=== PATIENT | female | born 1985 | race African-American/Black ===

== ENCOUNTER 2017-02-11 12:22 | Emergency (ER) | payer SELFPAY ==
[2017-02-11] MEDS ORDERED: Acetaminophen 500 MG TAB ONE (13:07)
[2017-02-11] MEDS ORDERED: Ketorolac Tromethamine 60 MG/2 ML VIAL ONE (13:07)
[2017-02-11] MEDS ORDERED: Ondansetron ODT 4 MG TAB ONE (13:07)
== END 2017-02-11 13:38 | disposition home or self-care (01) ==
LOC: NAV ERS 12:22
DX: G43.909 Migraine, unspecified, not intractable, without status migrainosus (principal)
CPT/HCPCS: 96372; J1885; Q0162

== ENCOUNTER 2017-03-15 08:24 | Emergency (ER) | payer SELFPAY ==
[2017-03-15] MEDS ORDERED: Loperamide HCl 2 MG CAP ONE (08:43)
== END 2017-03-15 08:55 | disposition home or self-care (01) ==
LOC: NAV ERS 08:24
DX: R19.7 Diarrhea, unspecified (principal)
CPT/HCPCS: 99283